=== PATIENT | male | born 1965 | race Two or more races ===

== ENCOUNTER 2019-05-31 04:15 | Emergency (ER) | payer SELFPAY ==
[~2019-05-31] VITALS: Ht 172.7 cm; Wt 75.2 kg
[~2019-05-31 04:15] MED LIST: FOLI-17 PO; OMEP-110 PO; PROP10TA51 PO; THIA100T67 PO
[2019-05-31 06:03] LABS: ALBUMIN 3.5 g/dL (3.4-5.0); ANION GAP 4 mmol/L (5-15); CALCIUM 8.5 mg/dL (8.5-10.1); CHLORIDE 107 mmol/L (98-107)
[2019-05-31 06:04] LABS: MEAN CORPUSCULAR HEMOGLOBIN 19.3 pg (27.5-34.5); MEAN CORPUSCULAR VOLUME 64.6 fL (81-97); RED BLOOD COUNT 5.86 x10^6/uL (4.38-5.82); RED CELL DISTRIBUTION WIDTH 22.3 % (9.4-14.8)
[2019-05-31 06:07] LABS: ALANINE AMINOTRANSFERASE 129 U/L (12-78); ALKALINE PHOSPHATASE 132 U/L (45-117); BILIRUBIN,TOTAL 1.1 mg/dL (0.2-1.0); CREATININE 0.79 mg/dL (0.7-1.3); TOTAL PROTEIN 8.4 g/dL (6.4-8.2)
[2019-05-31 06:16] VITALS: BP 135/74
[2019-05-31 06:42] LABS: MD YES; MEAN CORPUSCULAR HGB CONC 29.8 g/dL (33.2-36.2); PLATELET COUNT 66 x10^3/uL (130-400)
[2019-05-31 06:44] LABS: BAND#(MANUAL) 0.04 x10^3/uL; BANDS%(MANUAL) 1 % (0-7); LYMPH#(MANUAL) 0.59 x10^3/uL (1-3.4); LYMPHS% (MANUAL) 14 % (22-44); MONOS#(MANUAL) 0.17 x10^3/uL (0.3-2.7); MONOS% (MANUAL) 4 % (2-9); SEGS% (MANUAL) 81 % (42-75)
[2019-05-31 06:46] LABS: ANISOCYTOSIS 2+; HYPOCHROMIA 2+; MICROCYTOSIS 2+
[2019-05-31 06:47] LABS: <PLATELET ESTIMATE> DECREASED; LARGE PLATELETS 1+; OVALOCYTES 1+; POLYCHROMASIA 1+; TEAR DROPS 1+
--- NOTE | 2019-05-31 06:48 | NUR ---
REPORT RECEIVED FROM [facility] LAIRD.
== END 2019-05-31 07:48 | disposition home or self-care (01) ==
LOC: ED 07:26
DX: K21.9 Gastro-esophageal reflux disease without esophagitis (principal)
CPT/HCPCS: 36415; 80053; 83690; 85025; 99283